=== PATIENT | female | born 2005 | race Caucasian/White ===

== ENCOUNTER 2024-12-22 07:00 | Outpatient (NON) | payer BC, SELFPAY ==
--- NOTE | 2024-12-22 13:20 | S_PTH ---
PATIENT: Madelin Marie LOC: [facility] U#:[id number] AGE/SX: 19/F ROOM: RE12/22/[address]: Alberto Gonzalez MD : [id number] BED: DIS: 12/22/2024 SPEC #: [id number] RECD: 12/23/24 07:33 STATUS: SHMUEL REQ #: [id number] ANAIS: 12/22/24 13:[address]: Alberto Gonzalez DEPT: [facility] Surgical RECD BY: Tosha Stoll ENTERED: 12/23/24 07:34 SP TYPE: Surgical OTHR DR: UNKNOWN,DOCTOR Tissues: A - Skin Procedures: Hematoxylin and Eosin Stain Gross and Microscopic Level 4 Comments: @ Originally on account #[id number] Req #[id number]
== END 2024-12-22 07:01 | disposition home or self-care (01) ==
LOC: ANHLAB 10-17 13:26
PROVIDERS: Visit Provider Plastic Surgery
DX: D48.5 Neoplasm of uncertain behavior of skin (principal)
CPT/HCPCS: 88305